=== PATIENT | male | born 1965 | race African-American/Black ===

== ENCOUNTER → 2018-04-26 | Outpatient (CLI) | payer OTHER ==
[~2018-04-26] MED LIST: AMLODIPINE BESYL5 M1 PO; BYSTOLIC2.5 MG PO; HYDRALAZINE HC100 MG PO; HYDROCHLOROTH12.5 MG PO; IBUPROFEN 600600 M1 PO; LISINOPRIL40 MG PO; NORCO 5-325 TA1 EACH PO; PERCOCET 5-3251 EACH PO
== END ==
LOC: ULTRA 14:07
DX: N43.2 Other hydrocele (principal); N50.812 Left testicular pain

== ENCOUNTER → 2020-07-21 | Outpatient (CLI) | payer BC, OTHER | LOC: RAD 10:53 | PROVIDERS: ATTEND Family Medicine | DX: N64.4 Mastodynia (principal) ==

== ENCOUNTER → 2020-09-01 | Outpatient (CLI) | payer BC, OTHER | LOC: ULTRA 10:00 | PROVIDERS: ATTEND Family Medicine | DX: N64.4 Mastodynia (principal) ==